=== PATIENT | male | born 1955 | race Two or more races ===

== ENCOUNTER 2021-02-14 12:13 | Inpatient (IN) | payer MEDICARE ==
[~2021-02-14] VITALS: Ht 162.6 cm; Wt 83.4 kg
[~2021-02-14 12:13] MED LIST: ATOR-2 PO; INSULIN SQ; LISI2.5T PO; METF500T17 PO
--- NOTE | 2021-02-14 12:45 | NUR ---
PT TO ROOM 25 W/ C/O SLURRED SPEECH, BLURRY VISION AND INCREASED WEAKNESS X 1 WEEK. PER PT WAS SEEN AND ADMITTED HERE 3 WEEKS AGO AND PT WAS NOTED TO BE GREEN IN SKIN TONE. STATES CURRENT JAUNDICED SKIN TONE IS AN IMPROVEMENT. PT AOX3. PT RESTING ON GURNEY. NADN. MONITORS APPLIED. VSS. WARM BLANKET PROVIDED. FAMILY AT BEDSIDE. Addendum: 02/14/21 at 1249 by ANIYAH PER PT ALSO HAS HAD DIFFICULT TALKING AND SWALLOWING/EATING SINCE THURSDAY.
[2021-02-14 13:12] LABS: ALANINE AMINOTRANSFERASE 49 U/L (12-78); ALBUMIN 2.7 g/dL (3.4-5.0); ANION GAP 10 mmol/L (5-15); CALCIUM 7.2 mg/dL (8.5-10.1); CHLORIDE 101 mmol/L (98-107); CREATININE 0.81 mg/dL (0.7-1.3)
[2021-02-14 13:15] LABS: ALKALINE PHOSPHATASE 411 U/L (45-117); TOTAL PROTEIN 7.2 g/dL (6.4-8.2)
[2021-02-14 13:25] LABS: BASOPHILS % (AUTO) 1 % (0-1); EOSINOPHILS % (AUTO) 5 % (1-7); LYMPHOCYTES % (AUTO) 18 % (22-44); MEAN CORPUSCULAR HEMOGLOBIN 34.3 pg (27.5-34.5); MEAN CORPUSCULAR HGB CONC 36.2 g/dL (33.2-36.2); MEAN PLATELET VOLUME 7.7 fL (7.4-10.4); MONOCYTES % (AUTO) 11 % (2-9); NEUTROPHILS % (AUTO) 66 % (42-75); PLATELET COUNT 309 x10^3/uL (130-400); RED BLOOD COUNT 2.83 x10^6/uL (4.38-5.82); RED CELL DISTRIBUTION WIDTH 16.2 % (9.4-14.8)
[2021-02-14 13:32] LABS: MD NO
--- NOTE | 2021-02-14 13:32 | NUR ---
PT RESTING ON GURNEY. NADN. HUSAIN.
[2021-02-14 13:41] LABS: MICROSCOPIC NOT IND
[2021-02-14] MEDS ORDERED: OMNIPAQUE 350 MG/ML, 100ML BOTTLE ONE (13:57)
--- NOTE | 2021-02-14 14:35 | NUR ---
PT RESTING ON GURNEY. NADN. HUSAIN.
--- NOTE | 2021-02-14 14:47 | NUR ---
PT CHART REVIEWED AND PLACED FOR RECHECK.
--- NOTE | 2021-02-14 15:57 | NUR ---
BREAK RN: PT LAYING ON GURNEY, NO ACUTE DISTRESS NOTED. SR PER MONITOR. AUTO BP IN PLACE. AWAITING FOR MD RECHECK AND FURTHER DISPOSITION.
[2021-02-14] MEDS: SODIUM CHLORIDE 0.9% 1,000 ML IV SCH (16:00)
[2021-02-14] MEDS ORDERED: ACETAMINOPHEN 325 MG TABLET PO PRN (16:00)
[2021-02-14] MEDS: INSULIN LISPRO 100 UNITS/ML, PEN SQ-INSULIN SCH ×2 (16:00→21:28)
[2021-02-14] MEDS ORDERED: ONDANSETRON 2MG/ML, 2ML IVPush PRN (16:00)
[2021-02-14] MEDS ORDERED: ONDANSETRON ODT 4 MG PO PRN (16:00)
--- NOTE | 2021-02-14 17:07 | NUR ---
REPORT GIVEN TO SCOTT, RECEIVING RN. ALL QUESTIONS ANSWERED. AWAITING PT TRANSPORT.
[2021-02-14 18:17] VITALS: BP 146/75
[2021-02-14] MEDS: LACTULOSE 10 GM/15 ML UDC PO SCH ×2 (18:25→21:05)
[2021-02-14] MEDS: HEPARIN 5,000 UNITS/ML, 1ML SQ SCH (18:26)
[2021-02-14] MEDS: CARVEDILOL 3.125 MG TABLET PO SCH (18:27)
[2021-02-14] MEDS: ATORVASTATIN 40 MG TABLET PO SCH (21:05)
[2021-02-15 00:30] VITALS: BP 137/73
[2021-02-15] MEDS: HEPARIN 5,000 UNITS/ML, 1ML SQ SCH ×3 (02:44→18:30)
[2021-02-15 05:10] LABS: BASOPHILS % (AUTO) 1 % (0-1); EOSINOPHILS % (AUTO) 6 % (1-7); LYMPHOCYTES % (AUTO) 23 % (22-44); MEAN CORPUSCULAR HEMOGLOBIN 33.7 pg (27.5-34.5); MEAN CORPUSCULAR HGB CONC 35.6 g/dL (33.2-36.2); MEAN PLATELET VOLUME 7.4 fL (7.4-10.4); MONOCYTES % (AUTO) 11 % (2-9); NEUTROPHILS % (AUTO) 60 % (42-75); PLATELET COUNT 277 x10^3/uL (130-400); RED BLOOD COUNT 2.58 x10^6/uL (4.38-5.82); RED CELL DISTRIBUTION WIDTH 16.3 % (9.4-14.8)
[2021-02-15 05:12] LABS: MD NO
[2021-02-15 05:17] LABS: CHLORIDE 105 mmol/L (98-107)
[2021-02-15 05:24] LABS: % IRON SATURATION 26 % (20-55); ALANINE AMINOTRANSFERASE 44 U/L (12-78); ALBUMIN 2.4 g/dL (3.4-5.0); ALKALINE PHOSPHATASE 331 U/L (45-117); ANION GAP 9 mmol/L (5-15); BILIRUBIN,TOTAL 2.6 mg/dL (0.2-1.0); CALCIUM 6.9 mg/dL (8.5-10.1); CREATININE 0.58 mg/dL (0.7-1.3); IRON LEVEL 63 mcg/dL (65-175); TOTAL IRON BINDING CAPACITY 247 mcg/dL (250-450); TOTAL PROTEIN 6.4 g/dL (6.4-8.2)
[2021-02-15] MEDS: CARVEDILOL 3.125 MG TABLET PO SCH ×2 (05:46→18:29)
[2021-02-15 06:28] VITALS: BP 140/72
[2021-02-15] MEDS: INSULIN LISPRO 100 UNITS/ML, PEN SQ-INSULIN SCH ×4 (07:34→22:36)
[2021-02-15] MEDS ORDERED: POTASSIUM CHLORIDE 20 MEQ TAB.ER.PRT PO ONE (08:30)
[2021-02-15] MEDS ORDERED: INSULIN SQ SCH (09:00)
[2021-02-15] MEDS: LACTULOSE 10 GM/15 ML UDC PO SCH ×3 (09:33→22:36)
[2021-02-15] MEDS: LISINOPRIL 40 MG TABLET PO SCH (09:35)
[2021-02-15] MEDS: SODIUM CHLORIDE 0.9% 1,000 ML IV SCH (09:42)
[2021-02-15] MEDS: ASPIRIN 325 MG TABLET PO SCH (11:01)
[2021-02-15 12:43] VITALS: BP 123/68
[2021-02-15 18:22] LABS: OCCULT BLOOD NEGATIVE (NEGATIVE)
[2021-02-15 18:24] VITALS: BP 129/75
[2021-02-15] MEDS: ATORVASTATIN 40 MG TABLET PO SCH (22:36)
[2021-02-16 01:05] VITALS: BP 145/73
[2021-02-16] MEDS: HEPARIN 5,000 UNITS/ML, 1ML SQ SCH ×3 (02:33→18:24)
[2021-02-16] MEDS: CARVEDILOL 3.125 MG TABLET PO SCH ×2 (06:05→18:24)
[2021-02-16] MEDS: ASPIRIN 325 MG TABLET PO SCH (06:05)
[2021-02-16 06:07] LABS: BASOPHILS % (AUTO) 2 % (0-1); EOSINOPHILS % (AUTO) 6 % (1-7); LYMPHOCYTES % (AUTO) 29 % (22-44); MEAN CORPUSCULAR HEMOGLOBIN 33.9 pg (27.5-34.5); MEAN CORPUSCULAR HGB CONC 35.9 g/dL (33.2-36.2); MEAN PLATELET VOLUME 7.5 fL (7.4-10.4); MONOCYTES % (AUTO) 13 % (2-9); NEUTROPHILS % (AUTO) 50 % (42-75); PLATELET COUNT 271 x10^3/uL (130-400); RED BLOOD COUNT 2.51 x10^6/uL (4.38-5.82); RED CELL DISTRIBUTION WIDTH 16.2 % (9.4-14.8)
[2021-02-16 06:10] LABS: CHLORIDE 109 mmol/L (98-107); MD NO
[2021-02-16 06:16] LABS: ALANINE AMINOTRANSFERASE 39 U/L (12-78); ALBUMIN 2.4 g/dL (3.4-5.0); ALKALINE PHOSPHATASE 282 U/L (45-117); ANION GAP 8 mmol/L (5-15); BILIRUBIN,TOTAL 2.3 mg/dL (0.2-1.0); CREATININE 0.67 mg/dL (0.7-1.3); TOTAL PROTEIN 6.4 g/dL (6.4-8.2)
[2021-02-16 06:55] VITALS: BP 146/77
[2021-02-16] MEDS: INSULIN LISPRO 100 UNITS/ML, PEN SQ-INSULIN SCH ×4 (07:41→21:42)
[2021-02-16] MEDS: LACTULOSE 10 GM/15 ML UDC PO SCH ×3 (10:39→21:40)
[2021-02-16] MEDS: LISINOPRIL 40 MG TABLET PO SCH (10:43)
[2021-02-16] MEDS: CALCIUM/VITAMIN D3 250-125 TABLET PO SCH ×2 (10:45→21:41)
[2021-02-16 12:51] VITALS: BP 149/71
[2021-02-16] MEDS ORDERED: CARV3.1212 PO ×2 (13:28)
[2021-02-16] MEDS ORDERED: ATOR-2 PO (13:28)
[2021-02-16] MEDS ORDERED: CALC1TAB68 PO (13:28)
[2021-02-16] MEDS ORDERED: INSU100I11 SQ-INSULIN (13:28)
[2021-02-16] MEDS ORDERED: AMLO2.5T5 PO (13:28)
[2021-02-16] MEDS ORDERED: ASPI325T17 PO (13:28)
[2021-02-16] MEDS: SODIUM CHLORIDE 0.9% 1,000 ML IV SCH (16:32)
[2021-02-16 18:23] VITALS: BP 176/83
[2021-02-16 20:54] VITALS: BP 169/76
[2021-02-16] MEDS ORDERED: AMLODIPINE 2.5 MG TABLET PO SCH (21:00)
[2021-02-16] MEDS: ATORVASTATIN 40 MG TABLET PO SCH (21:41)
[2021-02-17 00:13] VITALS: BP 159/74
[2021-02-17] MEDS: HEPARIN 5,000 UNITS/ML, 1ML SQ SCH ×2 (02:46→10:11)
[2021-02-17 06:26] VITALS: BP 148/73
[2021-02-17] MEDS: ASPIRIN 325 MG TABLET PO SCH (06:31)
[2021-02-17] MEDS: CARVEDILOL 3.125 MG TABLET PO SCH (06:31)
[2021-02-17] MEDS ORDERED: CARVEDILOL 6.25 MG TABLET PO SCH (08:00)
[2021-02-17] MEDS: LACTULOSE 10 GM/15 ML UDC PO SCH (08:39)
[2021-02-17] MEDS: CALCIUM/VITAMIN D3 250-125 TABLET PO SCH (08:40)
[2021-02-17] MEDS: INSULIN LISPRO 100 UNITS/ML, PEN SQ-INSULIN SCH ×2 (08:41→11:43)
[2021-02-17] MEDS: SODIUM CHLORIDE 0.9% 1,000 ML IV SCH (08:43)
[2021-02-17] MEDS ORDERED: LISINOPRIL 20 MG TABLET PO SCH (09:00)
[2021-02-17] MEDS ORDERED: CARV6.2512 PO (10:32)
[2021-02-17 13:28] VITALS: BP_SYST 137; BP_SYST 97; BP_DIAS 60
== END 2021-02-17 14:55 | DRG 64 ==
LOC: ED 16:45 → EDIP 17:06 → 3N 17:28
PROVIDERS: ADMIT Internal Medicine; ATTEND Internal Medicine
DX: I63.9 Cerebral infarction, unspecified (principal); G93.41 Metabolic encephalopathy; K83.1 Obstruction of bile duct; E87.1 Hypo-osmolality and hyponatremia; E72.20 Disorder of urea cycle metabolism, unspecified; I10 Essential (primary) hypertension; E11.9 Type 2 diabetes mellitus without complications; E66.9 Obesity, unspecified; R13.10 Dysphagia, unspecified; E87.6 Hypokalemia; Z80.0 Family history of malignant neoplasm of digestive organs; Z79.899 Other long term (current) drug therapy; Z68.31 Body mass index [BMI] 31.0-31.9, adult
CPT/HCPCS: 36415; 70450; 70551; 71045; 74177; 80053; 81003; 82140; 82272; 82330; 82550; 82962; 83036; 83540; 83550; 83735; 85025; 87040; 93005; 93306; 93880; 99285; G0378; J1644; Q9967; J1815; J7030

== ENCOUNTER 2021-03-15 10:59 | Emergency (ER) | payer MEDICARE ==
[~2021-03-15] VITALS: Ht 177.8 cm; Wt 75.0 kg
[~2021-03-15 10:59] MED LIST changes: +AMLO2.5T5 PO; +ASPI325T17 PO; +CALC1TAB68 PO; +CARV3.1212 PO; +CARV6.2512 PO; +INSU100I11 SQ-INSULIN
[2021-03-15] MEDS ORDERED: DIPH,PERTUSS(ACELL),TET VAC/PF 0.5 ML IM-VACC ONE ×2 (11:30→11:45)
--- NOTE | 2021-03-15 11:51 | NUR ---
PATIENT BACK FROM CT. PATIENT ARRIVED FROM [place] WITH [facility] TWO DAYS AGO. HE HAS DRIED BLOOD OVER LACERATION TO RIGHT EYE JUST ABOVE EYE, AND SWOLLEN ORBITAL AREA.
--- NOTE | 2021-03-15 12:21 | NUR ---
WOUNDS CLEANED AND ABX CREAM APPLIED. STERI STRIPS REMOVED
--- NOTE | 2021-03-15 13:20 | NUR ---
REPORT TO MICHELLE CHRISTIANSEN AT [place]. TRANSPORTATION ARRANGED AND PATIENT IN BED RAILS UP AWAITING TRANSPORT TO HIS HOME. WOUND DRESSED
[2021-03-15 13:43] VITALS: BP 166/88
--- NOTE | 2021-03-15 13:53 | NUR ---
REPORT TO [employer], HELPED INTO WHEELCHAIR AND PATIENT LEFT
== END 2021-03-15 13:54 | disposition short-term general hospital (02) ==
LOC: ED 11:47
DX: S01.111A Laceration without foreign body of right eyelid and periocular area, initial encounter (principal); S00.11XA Contusion of right eyelid and periocular area, initial encounter; Z86.73 Personal history of transient ischemic attack (TIA), and cerebral infarction without residual deficits; I10 Essential (primary) hypertension; E11.9 Type 2 diabetes mellitus without complications; E78.00 Pure hypercholesterolemia, unspecified; W18.30XA Fall on same level, unspecified, initial encounter; Y93.89 Activity, other specified; Y92.009 Unspecified place in unspecified non-institutional (private) residence as the place of occurrence of the external cause; Y99.8 Other external cause status
CPT/HCPCS: 70450; 70486; 90471; 90715

== ENCOUNTER → 2021-05-24 | Outpatient (CLI) | payer MEDICARE ==
[2021-05-24 15:21] LABS: BASOPHILS % (AUTO) 1 % (0-1); EOSINOPHILS % (AUTO) 3 % (1-7); LYMPHOCYTES % (AUTO) 21 % (22-44); MEAN CORPUSCULAR HEMOGLOBIN 30.7 pg (27.5-34.5); MEAN CORPUSCULAR HGB CONC 34.3 g/dL (33.2-36.2); MONOCYTES % (AUTO) 8 % (2-9); NEUTROPHILS % (AUTO) 67 % (42-75); PLATELET COUNT 342 x10^3/uL (130-400); RED BLOOD COUNT 3.17 x10^6/uL (4.38-5.82); RED CELL DISTRIBUTION WIDTH 15.8 % (9.4-14.8)
[2021-05-24 15:26] LABS: INTERNATIONAL NORMALIZED RATIO 1.03 (0.93-1.1)
[2021-05-24 15:45] LABS: ALANINE AMINOTRANSFERASE 84 U/L (12-78); ALBUMIN 2.5 g/dL (3.4-5.0); ANION GAP 7 mmol/L (5-15); CALCIUM 8.5 mg/dL (8.5-10.1); CHLORIDE 105 mmol/L (98-107); CREATININE 0.62 mg/dL (0.7-1.3)
[2021-05-24 15:59] LABS: ALKALINE PHOSPHATASE 919 U/L (45-117); BILIRUBIN,TOTAL 5.5 mg/dL (0.2-1.0)
== END | disposition home or self-care (01) ==
LOC: RAD 13:30
PROVIDERS: ATTEND Internal Medicine
DX: K80.20 Calculus of gallbladder without cholecystitis without obstruction (principal); R17 Unspecified jaundice; E11.9 Type 2 diabetes mellitus without complications; R53.83 Other fatigue
CPT/HCPCS: 36415; 76700; 80053; 82043; 82570; 83036; 85025; 85610

== ENCOUNTER 2021-05-29 19:46 | Emergency (ER) | payer MEDICARE ==
[~2021-05-29] VITALS: Ht 162.6 cm; Wt 87.0 kg
--- NOTE | 2021-05-29 20:00 | NUR ---
JONATHAN RN: PT IS NOT ABLE TO MOLD BLOWER TRIAGE FOR A WEIGHT. PT HAS HX OF A STROKE AND DOES NOT STAND WELL.
[2021-05-29] MEDS ORDERED: SODIUM CHLORIDE 0.9% 1,000ML IVBOLUS ONE (21:00)
[2021-05-29 21:42] LABS: BASOPHILS % (AUTO) 0 % (0-1); EOSINOPHILS % (AUTO) 1 % (1-7); LYMPHOCYTES % (AUTO) 8 % (22-44); MEAN CORPUSCULAR HEMOGLOBIN 30.7 pg (27.5-34.5); MEAN CORPUSCULAR HGB CONC 34.6 g/dL (33.2-36.2); MEAN PLATELET VOLUME 7.4 fL (7.4-10.4); MONOCYTES % (AUTO) 5 % (2-9); NEUTROPHILS % (AUTO) 85 % (42-75); PLATELET COUNT 345 x10^3/uL (130-400); RED BLOOD COUNT 2.74 x10^6/uL (4.38-5.82); RED CELL DISTRIBUTION WIDTH 16.3 % (9.4-14.8)
[2021-05-29 21:48] LABS: ALBUMIN 2.2 g/dL (3.4-5.0); ANION GAP 6 mmol/L (5-15); CALCIUM 7.8 mg/dL (8.5-10.1); CHLORIDE 100 mmol/L (98-107)
[2021-05-29 21:56] LABS: ALANINE AMINOTRANSFERASE 60 U/L (12-78); ALKALINE PHOSPHATASE 746 U/L (45-117); TOTAL PROTEIN 7.5 g/dL (6.4-8.2); TROPONIN I < 0.015 ng/mL (0.000-0.045)
--- NOTE | 2021-05-29 22:12 | NUR ---
ASSISTED PATIENT WITH GOING TO THE BATHROOM. PATIENT SITTING COMFORTABLY IN BED AFTER CHANGING BED SHEETS. NO OTHER NEEDS AT THIS TIME
[2021-05-30 00:02] VITALS: BP 156/79
--- NOTE | 2021-05-30 00:03 | NUR ---
PATIENT SITTING AT BEDSIDE COMFORTABLY AT THIS TIME. PATIENT IN NO DISTRESS. NO OTHER NEEDS AT THIS TIME
[2021-06-09] MEDS ORDERED: PANT20TA4 PO (10:42)
[2021-06-09] MEDS ORDERED: HYDR-2214 PO (10:42)
[2021-06-09] MEDS ORDERED: CHLO25TA4 PO (10:46)
[2021-06-09] MEDS ORDERED: ONDA4TAB7 PO (13:35)
== END 2021-05-30 01:28 | disposition home or self-care (01) ==
LOC: ED 20:00
DX: K59.00 Constipation, unspecified (principal); D64.9 Anemia, unspecified; E11.65 Type 2 diabetes mellitus with hyperglycemia; R00.0 Tachycardia, unspecified; I10 Essential (primary) hypertension; Z86.73 Personal history of transient ischemic attack (TIA), and cerebral infarction without residual deficits; E78.00 Pure hypercholesterolemia, unspecified; E87.1 Hypo-osmolality and hyponatremia
CPT/HCPCS: 36415; 74022; 76705; 80053; 83690; 84484; 85025; 93005; 99285

== ENCOUNTER 2021-07-20 07:23 | Inpatient (IN) | payer MEDICARE ==
[~2021-07-20] VITALS: Ht 170.2 cm; Wt 74.0 kg
[2021-07-24 06:42] VITALS: BP 123/66
== END 2021-07-24 15:35 | disposition home health service (06) | DRG 640 ==
LOC: ED 10:04 → EDIP 10:05 → ED 10:38 → 4NE 16:34 → 4NW 07-23 19:24
PROVIDERS: ADMIT Hospitalist; ATTEND Internal Medicine
PROC: 30233N1 Transfusion of Nonautologous Red Blood Cells into Peripheral Vein, Percutaneous Approach (ICD-10-PCS; principal; 2021-07-20)
DX: E86.0 Dehydration (principal); G93.41 Metabolic encephalopathy; K72.00 Acute and subacute hepatic failure without coma; E43 Unspecified severe protein-calorie malnutrition; K31.1 Adult hypertrophic pyloric stenosis; E87.1 Hypo-osmolality and hyponatremia; D64.9 Anemia, unspecified; E11.649 Type 2 diabetes mellitus with hypoglycemia without coma; E78.00 Pure hypercholesterolemia, unspecified; E78.5 Hyperlipidemia, unspecified; E83.51 Hypocalcemia; E87.6 Hypokalemia; I10 Essential (primary) hypertension; Z51.5 Encounter for palliative care; Z86.73 Personal history of transient ischemic attack (TIA), and cerebral infarction without residual deficits; Z85.07 Personal history of malignant neoplasm of pancreas; Z68.25 Body mass index [BMI] 25.0-25.9, adult; Z85.05 Personal history of malignant neoplasm of liver